=== PATIENT | male | born 1985 | race Caucasian/White ===

== ENCOUNTER → 2023-07-08 | Emergency (ER) | payer MEDICAID, OTHER ==
[~2023-07-08] VITALS: Ht 170.2 cm; Wt 74.8 kg
[~2023-07-08] MED LIST: AMOX-430 PO; AMOX/CLAVULANATE 875 MG TABLET ONE
[2023-07-08] MEDS: AMOX/CLAVULANATE 875 MG TABLET PO ONE (11:59)
[2023-07-08 12:44] VITALS: BP 101/61; TEMP 98.3; O2SAT 96
== END | disposition home or self-care (01) ==
LOC: ER 11:02
DX: S70.311A Abrasion, right thigh, initial encounter (principal); F10.10 Alcohol abuse, uncomplicated; F17.200 Nicotine dependence, unspecified, uncomplicated; X58.XXXA Exposure to other specified factors, initial encounter; Y93.89 Activity, other specified; Y92.89 Other specified places as the place of occurrence of the external cause; Y99.8 Other external cause status